=== PATIENT | female | born 1965 | race Two or more races ===

== ENCOUNTER 2023-04-18 12:59 | Emergency (ER) | payer OTHER ==
[~2023-04-18] VITALS: Ht 160 cm; Wt 73.5 kg
[2023-04-18] MEDS ORDERED: TAPAZOLE5 MG PO (14:16)
[2023-04-18 18:53] LABS: HEMATOCRIT 42.8 % (36.0-45.00); HEMOGLOBIN 14.2 g/dL (12.0-15.00); MEAN CELL VOLUME 89.8 fL (80.00-100.00); MEAN CORPUSCULAR HEMOGLOBIN 29.9 pg (27.00-32.0); MEAN CORPUSCULAR HGB CONC 33.3 g/dl (32.0-36.0); PLATELET COUNT 271 K/uL (150-450); RED BLOOD COUNT 4.77 M/uL (4.00-6.00); RED CELL DISTRIBUTION WIDTH 13.4 % (11.5-14.5)
== END 2023-04-18 20:52 | disposition home or self-care (01) ==
LOC: ER 12:59
PROVIDERS: General Practice
DX: R53.81 Other malaise (principal); J06.9 Acute upper respiratory infection, unspecified; Z20.822 Contact with and (suspected) exposure to COVID-19

== ENCOUNTER 2023-09-01 16:27 | Emergency (ER) | payer OTHER ==
[~2023-09-01] VITALS: Ht 160 cm; Wt 74.8 kg
[~2023-09-01 16:27] MED LIST: TAPAZOLE5 MG PO
[2023-09-01] MEDS ORDERED: ZOLPIDEM TARTR3.5 MG PO (18:01)
[2023-09-01] MEDS ORDERED: ATIVAN0.5 M1 PO (18:02)
[2023-09-01] MEDS ORDERED: PAXIL30 MG PO (18:02)
[2023-09-01 19:45] LABS: HEMATOCRIT 39.5 % (36.0-45.00); HEMOGLOBIN 13.4 g/dL (12.0-15.00); MEAN CELL VOLUME 88.3 fL (80.00-100.00); MEAN CORPUSCULAR HGB CONC 33.9 g/dl (32.0-36.0); PLATELET COUNT 212 K/uL (150-450); RED BLOOD COUNT 4.47 M/uL (4.00-6.00); RED CELL DISTRIBUTION WIDTH 13.2 % (11.5-14.5)
[2023-09-01 19:56] LABS: ALBUMIN 3.2 gm/dL (3.4-5.0); BILIRUBIN TOTAL 0.35 mg/dL (0.3-1.2); CALCIUM 8.9 mg/dL (8.5-10.1); CREATININE SERUM 0.92 mg/dL (0.55-1.02); GFR 62.7; GLOBULINA 3.9 G/DL (2.4-3.5); POTASSIUM 4.31 mEq/L (3.5-5.1); TOTAL PROTEIN 7.1 gm/dL (6.4-8.2)
== END 2023-09-02 02:12 | disposition home or self-care (01) ==
LOC: ER 16:27
PROVIDERS: Emergency Medicine
DX: R21 Rash and other nonspecific skin eruption (principal); R10.84 Generalized abdominal pain; Z20.822 Contact with and (suspected) exposure to COVID-19

== ENCOUNTER 2025-07-04 16:16 | Emergency (ER) | payer OTHER ==
[~2025-07-04] VITALS: Ht 160 cm; Wt 74.8 kg
[~2025-07-04 16:16] MED LIST changes: +ATIVAN0.5 M1 PO; +PAXIL30 MG PO; +ZOLPIDEM TARTR3.5 MG PO
[2025-07-04] MEDS ORDERED: LEVALBUTEROL HCL 0.63 MG/3 ML SOLUTION IH SCH (17:45)
[2025-07-04] MEDS ORDERED: IPRATROPIUM BROMIDE 0.5 MG/2.5 ML AMPUL.NEB IH SCH (17:45)
[2025-07-04] MEDS ORDERED: METHYLPREDNISOLONE SOD SUCC 125 MG VIAL IM STA (17:46)
[2025-07-04 20:21] LABS: BASO % 0.6 % (0.1-1.2); EOS # 0.26 (0.04-0.54); EOS % 1.8 % (0.7-7.0); LYMPH # 2.47 (1.18-3.74); LYMPH % 16.9 % (19.3-53.1); MEAN PLATELET VOLUME 9.70 fl (9.4-12.4); MONO # 0.77 (0.24-0.82); MONO % 5.3 % (4.7-12.5); NEUT # 10.97 (1.56-6.13); NEUT % 74.9 % (34.0-71.1); RED CELL DISTRIBUTION WIDTH 13.0 % (11.6-14.4)
[2025-07-04 20:23] LABS: ERYTHROCYTE SEDIMENTATION RATE 34 mm/hr (0-30)
[2025-07-04 20:38] LABS: COVID-19 AG NEGATIVE (NEGATIVE)
[2025-07-04 20:41] LABS: INR 1.04
[2025-07-04 20:46] LABS: ALT/SGPT 34.0 U/L (12-78); AST/SGOT 28.0 U/L (15-37); BILIRUBIN TOTAL 0.66 mg/dL (0.3-1.2); BUN CREA RATIO 12.0 (7.0-25.0); CREATININE SERUM 0.92 mg/dL (0.55-1.02); GFR 62.27; GLOBULINA 4.1 G/DL (2.4-3.5); GLUCOSE FASTING 103.0 mg/dL (65-100); OSMOLALITY SERUM 281.0 MOSM/KG (275-295)
[2025-07-04] MEDS ORDERED: CEFTRIAXONE SODIUM 1,000 MG VIAL IM STA (21:20)
[2025-07-04 21:53] LABS: URINE APPEARANCE Clear; URINE BILIRRUBIN Negative (NEGATIVE); URINE BLOOD Trace; URINE COLOR Yellow; URINE GLUCOSE Negative (NEGATIVE); URINE KETONE Negative (NEGATIVE); URINE LEUKOCYTE Moderate; URINE NITRATE Negative; URINE PROTEIN Trace (NEGATIVE); URINE UROBILINOGEN 0.2 E.U./dl
[2025-07-04 21:57] LABS: URINE EPITHELIAL CELLS 31.2 uL (0.0-38.8); URINE RBC 26.2 uL (0.0-20.8); URINE WBC 635.8 uL (0.0-23.2)
[2025-07-04 22:01] LABS: URINE CAST 0.42 uL (0.0-1.40)
[2025-07-04] MEDS ORDERED: MUCINEX DM ER1 EAC1 PO (22:08)
[2025-07-04] MEDS ORDERED: ZITHROMAX500 MG PO (22:08)
== END 2025-07-04 22:13 | disposition home or self-care (01) ==
LOC: ER 16:17
PROVIDERS: Physician Assistant Medical
DX: J06.9 Acute upper respiratory infection, unspecified (principal); F41.8 Other specified anxiety disorders; E03.8 Other specified hypothyroidism; D72.829 Elevated white blood cell count, unspecified; Z20.822 Contact with and (suspected) exposure to COVID-19